=== PATIENT | female | born 1990 | race Two or more races ===

== ENCOUNTER 2018-09-14 12:04 | Emergency (ER) | payer OTHER ==
[~2018-09-14] VITALS: Ht 167.6 cm; Wt 115.0 kg
[2018-09-14 13:09] VITALS: BP 142/87
== END 2018-09-14 18:38 | disposition left against medical advice (07) ==
LOC: ER 13:23
DX: Z53.21 Procedure and treatment not carried out due to patient leaving prior to being seen by health care provider (principal)